=== PATIENT | female | born 1960 | race Caucasian/White ===

== ENCOUNTER → 2024-02-17 | Outpatient (CLI) | payer BC ==
[2024-02-17 10:46] LABS: HCT 43.8 % (34.0-46.0); HGB 13.8 gm/dL (11.4-16.0); MCHC 31.5 g/dL (31.0-37.0); MCV 95.3 fL (80.0-100.0); Mean Platelet Volume 9.3; Platelet Count 279 k/uL (150-450); RBC 4.59 m/uL (3.80-5.40); WBC 7.9 k/uL (3.8-10.6)
[2024-02-17 11:01] LABS: Partial Thromboplastin Time 30.2 sec (22.0-30.0)
[2024-02-17 15:44] LABS: ALT 19 U/L (8-44); AST 20 U/L (13-35); Albumin 4.5 g/dL (3.8-4.9); Albumin/Globulin Ratio 1.96 Ratio (1.60-3.17); Alkaline Phosphatase 98 U/L (41-126); BUN/Creat Ratio 13.43 Ratio (12.00-20.00); Blood Urea Nitrogen 9.4 mg/dL (9.0-27.0); Calcium 9.5 mg/dL (8.7-10.3); Carbon Dioxide 26.8 mmol/L (21.6-31.8); Chloride 102 mmol/L (96-109); Globulin 2.3 g/dL (1.6-3.3); Glucose 132 mg/dL (70-110); Potassium 4.4 mmol/L (3.5-5.5); Sodium 141 mmol/L (135-145); Total Bilirubin 0.3 mg/dL (0.3-1.2); Total Protein 6.8 g/dL (6.2-8.2)
[2024-02-19 15:04] LABS: INR 0.9 (<1.2); Prothrombin Time 9.8 sec (10.0-12.5)
== END | disposition home or self-care (01) ==
LOC: LABPAT 10:18
PROVIDERS: ATTEND Orthopaedic Surgery
DX: Z01.818 Encounter for other preprocedural examination (principal); I51.89 Other ill-defined heart diseases; M17.12 Unilateral primary osteoarthritis, left knee; Z22.322 Carrier or suspected carrier of Methicillin resistant Staphylococcus aureus
CPT/HCPCS: 80053; 85027; 85610; 85730; 87070; 93005

== ENCOUNTER 2024-03-08 09:04 | Observation (INO) | payer BC ==
[2024-03-03 13:13] VITALS: BMI 31.1
[~2024-03-08 09:04] MED LIST: HYDROmorphone 0.5 MG/0.5 ML SYRINGE IVP PRN; LIDOCAINE 1% (10MG/ML) FOR IV START INTRADERMA PRN; MAGNESIUM HYDROXIDE 2,400 MG/30 ML CUP PO PRN; MIDAZOLAM 2 MG/2 ML VIAL IV PRN; NA PHOS,M-B/NA PHOS,DI-BA 133 ML ENEMA RECTAL PRN; NALOXONE 0.4 MG/ML 1 ML VIAL IV PRN; TRANEXAMIC 1,000 MG/100ML-NACL 1,000 MG in SALINE 1 100ML.BAG IVPB PRN; bisacodyL 10 MG SUPP RECTAL PRN; fentaNYL (PF) 50 MCG/ML 2 ML AMP IVP PRN
[2024-03-08] MEDS: IV FLUID CONTINUATION 1,000 ML IV ONE (09:39)
[2024-03-08] MEDS: DEXAMETHASONE SOD PHOSPHATE 4 MG/ML 1 ML VIAL IV ONE (10:03)
[2024-03-08] MEDS: SCOPOLAMINE 1 MG/72 HR PATCH TRANSDERM STA (10:03)
[2024-03-08] MEDS: GABAPENTIN 300 MG CAP PO PRN (10:04)
[2024-03-08] MEDS: ACETAMINOPHEN TAB 500 MG TAB PO PRN (10:04)
[2024-03-08] MEDS: MELOXICAM 7.5 MG TAB PO PRN (10:04)
[2024-03-08] MEDS: ONDANSETRON 4 MG/2 ML VIAL IVP ONE (10:04)
[2024-03-08] MEDS: LACTATED RINGERS 1,000 ML IV SCH (10:05)
[2024-03-08] MEDS: FAMOTIDINE 20 MG/2 ML VIAL IV STA (10:06)
[2024-03-08] MEDS: MIDAZOLAM 2 MG/2 ML VIAL IVP ONE (10:11)
--- NOTE | 2024-03-08 10:40 | P.ANPRN ---
Procedure Note - Anesthesia - Nerve Block Performed Left Catherineck Single Time Out Performed: Yes Date of Procedure: 03/08/24 Procedure Start Time: 10:11 Procedure Stop Time: 10:16 Location of Patient: PreOp Indication: Acute Post-Operative Pain, Analgesia, Requested by Surgeon Sedation Type: Sedate with meaningful contact maintained Preparation: Sterile Prep Position: Right Lateral Catheter: None Needle Types: Pajunk Needle Gauge: 21 Ultrasound used to visualize needle placement: Yes Ultrasound used to observe medication spread: Yes Injectate: 0.5% Ropivacaine (see comment for volume) (Ropiv 20ml+Decadron 4mg) Blood Aspirated: No Pain Paresthesia on Injection Noted: No Resistance on Injection: Normal Image Stored and Saved: Yes Events: Uneventful and Well Tolerated
--- NOTE | 2024-03-08 10:41 | P.ANPRN ---
Procedure Note - Anesthesia - Nerve Block Performed Left Adductor Canal Infusion Time Out Performed: Yes Date of Procedure: 03/08/24 Procedure Start Time: : Procedure Stop Time: Location of Patient: PreOp Indication: Acute Post-Operative Pain, Analgesia, Requested by Surgeon Sedation Type: Sedate with meaningful contact maintained Preparation: Sterile Prep Position: Supine Catheter: Indwelling Needle Types: On-Q Ultrasound used to visualize needle placement: Yes Ultrasound used to observe medication spread: Yes Injectate: 0.5% Ropivacaine (see comment for volume) (Ropiv 20ml+[id number]) Blood Aspirated: No Pain Paresthesia on Injection Noted: No Resistance on Injection: Normal Image Stored and Saved: Yes Events: Uneventful and Well Tolerated
[2024-03-08] MEDS ORDERED: fentaNYL (PF) 50 MCG/ML 2 ML AMP ONE (12:30)
[2024-03-08] MEDS ORDERED: ROPIVACAINE 5 MG/ML 30 ML VIAL ONE (12:30)
[2024-03-08] MEDS ORDERED: PROPOFOL 10 MG/ML 20 ML VIAL IV ONE (12:30)
[2024-03-08] MEDS ORDERED: PHENYLEPHRINE 10 MG/ML VIAL ONE (12:30)
[2024-03-08] MEDS ORDERED: ePHEDrine 50 MG/ML 1 ML VIAL ONE (12:30)
[2024-03-08] MEDS ORDERED: DEXAMETHASONE SOD PHOSPHATE 4 MG/ML 1 ML VIAL ONE (12:30)
[2024-03-08] MEDS ORDERED: TRANEXAMIC 1,000 MG/100ML-NACL PREMIX BAG ONE (12:30)
[2024-03-08] MEDS ORDERED: MIDAZOLAM 2 MG/2 ML VIAL ONE (12:30)
[2024-03-08] MEDS: ceFAZolin 1,000 MG in SODIUM CHLORIDE 0.9% 1,000 ML IRRIGATION ONE (12:35)
--- NOTE | 2024-03-08 13:43 | P.OP ---
Date of Procedure: 03/08/24 Preoperative Diagnosis: Severe osteoarthritis left knee Postoperative Diagnosis: Severe osteoarthritis left knee Procedure(s) Performed: Left total knee arthroplasty Implants: [employer]hew Journey II CR Oxinium cruciate retaining femoral component size 6, left [employer] Journey nonporous tibial baseplate size 4, left [employer] Journey II, XLPE Deep Dished articular insert, size 11 mm, Size 3-4, left [employer] Journey Lluvia II resurfacing patellar component, oval, 29 mm All components were cemented using Palacos R bone cement The articulation is Oxinium on polyethylene Anesthesia: spinal Surgeon: Ranjeet Duckworth Model Maker [employer]arms #1: Chika Murillo Estimated Blood Loss (ml): 40 Pathology: none sent Condition: stable Disposition: PACU Indications for Procedure: The patient's knee is end-stage, and conservative management has failed. The operation of knee replacement has been discussed at length in the office, as well as potential risks and complications. These are inclusive of, but not limited to: Infection, bleeding, scarring, discomfort, stiffness, blood vessel and nerve damage, need for further surgery, failure to relieve symptoms, persistence, recurrence, or worsening of problems, loosening, dislocation, wear, blood clot, pulmonary embolism, , gait dysfunction, stiffness, and other risks as discussed in the office. Patient elects to proceed and the consent form has been signed. Operative Findings: The operative findings are consistent with severe osteoarthritis the left knee Description of Procedure: The patient was seen in the preoperative area, the consent was reviewed and the operative site was marked with a skin marker. The patient verified the procedure and the operative site. An adductor canal pain catheter and an iPACK block were placed by anesthesia in the preoperative area. The patient was then brought to the operating room and positioned on the operating room table in the supine position. Preoperative antibiotics and a gram of tranexamic acid were given intravenously. A spinal anesthetic was administered by the anesthesia department. Care was taken to make sure that all pressure points were adequately padded. A tourniquet was placed on the upper thigh and the lower extremity was prepped with ChloraPrep and draped in usual sterile fashion. A universal time-out was then performed which confirmed the patient's name, surgical site, ALLERGIES, and consent. The lower extremity was then exsanguinated and tourniquet was inflated to 250 mmHg. A standard anterior midline approach to the knee was performed. The skin and subcutaneous tissue were sharply dissected down to the patellar tendon. A medial parapatellar arthrotomy was then performed. The knee was then extended, the patellar was everted, and the knee was flexed. The infra-patellar fat pad was removed in order to enhance exposure. The anterior horns of both menisci were excised, and a release was performed to the posterior medial aspect of the knee. On gross visual inspection, there was complete loss of articular cartilage in the medial and patellofemoral joint spaces. There was also significant cartilage damage in the lateral compartment. There were multiple periarticular osteophytes globally about the knee which were then removed with a Ronguer. The femoral canal was then opened with the 9.5 mm intramedullary drill. The 8 mm intramedullary gely was then inserted into the femoral canal with the distal femoral cutting guide set for 5 of valgus. The distal femoral cutting block was then pinned in place. The intramedullary gely was then removed, and the distal femur was then cut. The cutting block was then removed and the cut was checked for symmetry. The resected bone was then measured to c onfirm the appropriate distal femoral resection. Next, the sizing guide was then placed and set for 3 external rotation based off of the epicondylar axis and Innis's line. Pins were then placed and the drill holes, and the femur was sized with the sizing stylus. The pins were then removed, and the sizing guide was then removed. The spikes of the appropriate size femoral block was then placed into the predrilled holes, and malleted into place. Two 45 mm pins were then placed into the fixation holes on the cutting block. An corry wing was then used to ensure there would be no notching with the anterior cut. The anterior condyles were cut without notching. The anterior chord cut was then performed, followed by the posterior cut, posterior chamfer cut, and the anterior chamfer cut. The collateral ligaments were protected during the entire process. The cutting block was then removed. Any remaining bone and osteophytes were removed from the femur with a Ronguer. Attention was then directed to the tibia. The remaining ACL was removed with a Ronguer, and the tibia was then gently subluxed forward with a large bent knee retractor. Any remaining menisci were excised. The posterior lateral corner was cauterized in order to coagulate the lateral geniculate artery. The extra medullary tibial cutting guide was then placed, set for the appropriate rotation, slope, and depth of resection. The proximal tibia cutting guide was then pinned in place. Proximal tibia was then cut and sized. A curved osteotome was then used to remove any posterior osteophytes from the distal femur. The femoral trial was placed. A narrow saw blade was then used to remove the anterior intracondylar femoral bone. The CR notch trial was then placed. The tibial trial was placed with the appropriate-sized insert. The knee was able to fully extend and flex to 130 and was stable throughout all range of motion. The knee was then extended and the patella was everted. Patella was then measured, and then using an osteotomy guide, the patella was cut at the appropriate level. The patellar component was sized. The patellar drill guide was placed and the patella was drilled. The patella trial was then placed. The knee was then taken through range of motion with the patella trial and the patella tracked normally using the no thumbs technique. The patella trial was then removed. The knee was then flexed and lug holes were drilled through the femoral trial and the femoral trial was then removed. The tibial was then re- exposed, and the tibial broach guide was then pinned in place after it was set for the appropriate rotation to allow for the most coverage without overhang. The tibia was then reamed and broached. The femoral canal was plugged with autologous bone. The cut surfaces of bone were then irrigated with pulsatile lavage. The knee was also irrigated with Irrisept solution. The components were then opened, the cement was mixed. Cement was placed on the backside of the femoral, tibial, and patellar components. Cement was then applied to the tibial surface and pressurized into the surface using finger pressurization technique. The tibial component was then applied and excess cement was removed after it was impacted securely noted to be flush with the cut surface. In similar fashion, the cement was applied to the cut femoral surface, pressurized and using finger pressurization the component was impacted in place. Excess cement was removed. The polyethylene spacer was then implanted and locked into position. Patellar component was then applied in a similar technique and the patellar clamp was used to hold patella in place while the cement hardened. The knee was held in full extension while the cement hardened. Once the cement had fully hardened, the knee was reinspected. Any other cement extrusion was removed the final range of motion testing showed range of motion from 0-130 with excellent stability, both medial and laterally and appropriate alignment of the leg. Patella tracked normally. After the cemented hardened, the tourniquet was released and hemostasis was obtained. A second gram of transexamic acid was given intravenously. The knee was again irrigated. The knee was again taken through range of motion and found to be stable throughout all range of motion of 0-130, and the patella tracked normally. The fascia was then closed with 0 Vicryl followed by #2 strata fix suture. The subcutaneous tissue was closed with 3-0 Vicryl and 3-0 strata fix. Exofin glue was used for the skin and placed with the knee in flexion. After the glue had dried, and Optafoam silver impregnated dressing was applied. A lightly compressive dressing was applied using web roll and Manohar wrap. Patient was then transferred to the stretcher and taken to recovery room in stable condition. Sponge and needle counts were correct. The assistant corporate controller ELLIOT Vernon was required due the complexity surgery and the need for a skilled professional nursing assistant. She assisted in positioning, draping, retraction, and closure of the wound.
[2024-03-08] MEDS: ROPIVACAINE 1,100 MG, SODIUM CHLORIDE 0.9% 500 ML 330 ML, EMPTY PAIN BALL 1 EACH MISCELLANE PRN (14:38)
[2024-03-08] MEDS: droPERidol 5 MG/2 ML VIAL IVP ONE (14:50)
[2024-03-08] MEDS: HYDROmorphone 0.5 MG/0.5 ML SYRINGE IVP PRN ×2 (14:51→23:16)
--- NOTE | 2024-03-08 15:03 | XR ---
EXAMINATION TYPE: XR knee limited LT DATE OF EXAM: 03/08/2024 COMPARISON: None HISTORY: Postknee replacement TECHNIQUE: 2 view left knee FINDINGS: Tibial and femoral components in place. Postsurgical soft tissue changes are present. No ac olena fracture or dislocation is evident. IMPRESSION: 1. No acute fracture post replacement
[2024-03-08] MEDS: SODIUM CHLORIDE 0.9% 1,000 ML IV SCH (17:01)
[2024-03-08] MEDS: HYDROcodone/APAP 7.5-325MG 1 EACH TAB PO PRN (18:32)
[2024-03-08] MEDS: ONDANSETRON 4 MG/2 ML VIAL IVP PRN (19:44)
[2024-03-08] MEDS: HYDROmorphone 1 MG/ML 1 ML SYRINGE IVP PRN (19:47)
[2024-03-08] MEDS: SENNOSIDES-DOCUSATE SODIUM 1 EACH TAB PO SCH (21:19)
[2024-03-08] MEDS: ASPIRIN 325 MG TAB PO SCH (21:19)
--- NOTE | 2024-03-09 06:13 | P.PN ---
Progress Note - Text Progress Note Date: 03/09/24 The patient is doing well status post total knee replacement. POD #1. Pain is w ell controlled by a combination of local anesthetic infusion through the adductor canal catheter and oral analgesics. There are no signs of infection around the catheter skin entry site. The local anesthetic infusion will be continued as per protocol.
[2024-03-09] MEDS ORDERED: ONDANSETRON 4 MG/2 ML VIAL IVP PRN (08:38)
[2024-03-09 08:41] LABS: Basophils # (A) 0.02 X 10*3/uL (0.00-0.10); Basophils % (A) 0.1 %; Eosinophils # (A) 0 X 10*3/uL (0.04-0.35); Eosinophils % (A) 0 %; HCT 34.9 % (37.2-46.3); HGB 11.4 g/dL (12.0-15.0); Lymphocytes # (A) 0.98 X 10*3/uL (0.90-5.00); Lymphocytes % (A) 7.2 %; MCH 31.1 pg (27.0-32.0); MCHC 32.7 g/dL (32.0-37.0); MCV 95.4 FL (80.0-97.0); Mean Platelet Volume 11.5 FL (9.5-12.2); Monocytes # (A) 0.64 X 10*3/uL (0.20-1.00); Monocytes % (A) 4.7 %; NRBC Per 100 WBC 0 X 10*3/uL (0.00-0.01); Neutrophils # (A) 11.86 X 10*3/uL (1.80-7.70); Neutrophils % (A) 87.6 %; Platelet Count 251 X 10*3/uL (140-440); RBC 3.66 X 10*6/uL (4.10-5.20); RDW 13.4 % (11.5-14.5); WBC 13.56 X 10*3/uL (4.50-10.00)
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
--- NOTE | 2024-03-09 09:41 | P.PN ---
Subjective Progress Note Date: 03/09/24 This is a 64-year-old female who is status post left total knee arthroplasty. This is postoperative day #1 and patient is seen and evaluated at bedside with Dr. Ranjeet Duckworth. Patient states that her pain is well-controlled, but she is quite nauseous this morning. Patient states that she is feeling somewhat better after eating breakfast. Patient states that she was able to work with physical therapy this morning with no issues. Objective - Vital Signs Vital signs: Vital Signs Temp 97.9 F 03/09/24 07:05 Pulse 77 03/09/24 07:05 Resp 16 03/09/24 07:05 BP 100/52 03/09/24 07:05 Pulse Ox 94 L 03/09/24 07:05 FiO2 Intake & Output 03/08/24 03/09/24 03/09/24 18:59 06:59 18:59 Intake Total 551 Output Total 40 Balance 511 Weight 93.5 kg Intake: IV 551 Output: Estimated Blood Loss 40 Other: Voiding Method Toilet # Voids 1 6 - Exam Vital signs are stable. Patient is in no acute distress and is alert and messi ented 3. Calf is soft and nontender to palpation. Dressing is clean, dry, and intact. Patient has full foot and ankle motion without pain or difficulty. Sensation intact. Neurovascular status and circulatory status are intact. - Labs CBC & Chem 7: 03/09/24 03:09 Labs: Abnormal Lab Results - Last 24 Hours (Table) 03/09/24 Range/Units 03:09 WBC 13.56 H (4.50-10.00) X 10*3/uL RBC 3.66 L (4.10-5.20) X 10*6/uL Hgb 11.4 L (12.0-15.0) g/dL Hct 34.9 L (37.2-46.3) % Immature Gran # 0.06 H (0.00-0.04) X 10*3/uL Neutrophils # 11.86 H (1.80-7.70) X 10*3/uL Eosinophils # 0 L (0.04-0.35) X 10*3/uL Assessment and Plan (1) Osteoarthritis of left knee Current Visit: Yes Status: Acute Code(s): M17.12 - UNILATERAL PRIMARY OSTEOARTHRITIS, LEFT KNEE SNOMED Code(s): 704914592232802 (2) Status post total left knee replacement Current Visit: Yes Status: Acute Code(s): Z96.652 - PRESENCE OF LEFT ARTIFICIAL KNEE JOINT SNOMED Code(s): 6192565129593 Plan: #1 Continue with routine postoperative care and pain control, leave dressing in place for 7 days. #2 Anticoagulation with aspirin. #3 Physical therapy today. #4 Appreciate input from internal medicine. #5 Anticipate discharge home with home care tomorrow.
[2024-03-09] MEDS: METOCLOPRAMIDE 5 MG/ML 2 ML VIAL IVP SCH (10:24)
[2024-03-09] MEDS: HYDROcodone/APAP 7.5-325MG 1 EACH TAB PO PRN (10:24)
[2024-03-10] MEDS ORDERED: KETOROLAC 15 MG/ML 1 ML VIAL IVP PRN (12:30)
--- NOTE | 2024-03-10 12:34 | P.PN ---
Subjective Progress Note Date: 03/10/24 This is a 64-year-old female who is status post left total knee arthroplasty. This is postoperative day #2 and patient is seen and evaluated at bedside today. Patient states that she continues to have issues with nausea, but has been able to work with physical therapy. Objective - Vital Signs Vital signs: Vital Signs Temp 99.2 F 03/10/24 06:58 Pulse 89 03/10/24 06:58 Resp 18 03/10/24 06:58 BP 104/62 03/10/24 06:58 Pulse Ox 91 L 03/10/24 07:52 FiO2 21 03/09/24 09:42 Intake & Output 03/09/24 03/10/24 03/10/24 18:59 06:59 18:59 Other: Voiding Method Toilet # Voids 2 3 - Exam Vital signs are stable. Patient is in no acute distress and is alert and oriented 3. Calf is soft and nontender to palpation. Dressing is clean, dry, and intact. Patient has full foot and ankle motion without pain or difficulty. Sensation intact. Neurovascular status and circulatory status are intact. - Labs CBC & Chem 7: 03/09/24 03:09 Assessment and Plan (1) Osteoarthritis of left knee Current Visit: Yes Status: Acute Code(s): M17.12 - UNILATERAL PRIMARY OSTEOARTHRITIS, LEFT KNEE SNOMED Code(s): 731904967428950 (2) Status post total left knee replacement Current Visit: Yes Status: Acute Code(s): Z96.652 - PRESENCE OF LEFT ARTIFICIAL KNEE JOINT SNOMED Code(s): 9416321259563 Plan: #1 Continue with routine postoperative care and pain control, leave dressing in place for 7 days. #2 Anticoagulation with aspirin. #3 Physical therapy today. #4 Appreciate input from internal medicine. #5 Anticipate discharge home with home care tomorrow.
[2024-03-10 20:08] VITALS: RESP 18
[2024-03-11 07:22] VITALS: BP 157/88; PULSE 78; TEMP 98.3
[2024-03-11 08:36] LABS: Basophils # (A) 0.06 X 10*3/uL (0.00-0.10); Basophils % (A) 0.6 %; Eosinophils # (A) 0.12 X 10*3/uL (0.04-0.35); Eosinophils % (A) 1.2 %; HCT 31.1 % (37.2-46.3); HGB 10.3 g/dL (12.0-15.0); Lymphocytes # (A) 1.49 X 10*3/uL (0.90-5.00); Lymphocytes % (A) 15.1 %; MCH 31.1 pg (27.0-32.0); MCHC 33.1 g/dL (32.0-37.0); Mean Platelet Volume 11.3 FL (9.5-12.2); Monocytes # (A) 0.71 X 10*3/uL (0.20-1.00); Monocytes % (A) 7.2 %; NRBC Per 100 WBC 0 X 10*3/uL (0.00-0.01); Neutrophils # (A) 7.45 X 10*3/uL (1.80-7.70); Neutrophils % (A) 75.3 %; Platelet Count 217 X 10*3/uL (140-440); RBC 3.31 X 10*6/uL (4.10-5.20); RDW 13.5 % (11.5-14.5); WBC 9.89 X 10*3/uL (4.50-10.00)
--- NOTE | 2024-03-11 09:03 | P.DS ---
Providers Date of admission: 03/08/24 09:05 Attending physician: Ranjeet Duckworth Consults: 03/08/24 08:39 Consult Physician Routine Consulting Provider: Dudley Dahl Consult Reason/Comments: medical management Do you want consulting provider notified?: Yes Primary care physician: Rabia Napoles - Discharge Diagnosis(es) (1) Osteoarthritis of left knee Current Visit: Yes Status: Acute (2) Status post total left knee replacement Current Visit: Yes Status: Acute Hospital Course: This is a -year-old female with history of degenerative arthritis to the left knee. They have failed outpatient conservative treatment and presents to discuss surgical options. After discussion and consideration the patient elects to proceed with total left knee arthroplasty. The patient is seen preoperatively by their primary care physician and cleared for surgery. The patient is taken to surgery on 03/08/2024 for total left knee arthroplasty. The procedure is performed without complication or sequelae. The patient is doing well postoperatively. Vital signs are stable on postop day #3. The patient is discharged to home in good condition. Please see med rec for accurate list of home medications. Patient Condition at Discharge: Good Plan - Discharge Summary Discharge Rx Participant: Yes New Discharge Prescriptions: New Aspirin 325 mg PO BID #60 tab HYDROcodone/APAP 7.5-325MG [[place] 7.5-325] 1 - 2 tab PO Q6H PRN #32 tab PRN Reason: Pain Ketorolac [Toradol] 10 mg PO Q6HR #12 tab Sennosides [Senokot] 2 tab PO DAILY PRN #60 tablet PRN Reason: Constipation Discharge Medication List Aspirin 325 mg PO BID #60 tab 03/08/24 [Rx] HYDROcodone/APAP 7.5-325MG [[place] 7.5-325] 1 - 2 tab PO Q6H PRN #32 tab 03/08/24 [Rx] Sennosides [Senokot] 2 tab PO DAILY PRN #60 tablet 03/08/24 [Rx] Ketorolac [Toradol] 10 mg PO Q6HR #12 tab 03/10/24 [Rx] Follow up Appointment(s)/Referral(s): Michelle Crouch, PAC [Family Provider] - 1 Week [facility] [NON[facility]STA[facility]] - 1-2 Days ([facility] will call you to schedule your in home physical therapy visits. ) Ranjeet Duckworth DO [Doctor of Osteopathic Medicine] - 03/23/24 2:30 pm (With Chika) Patient Instructions/Handouts: *Surgery [facility] - Scopalamine Patch Instructions Activity/Diet/Wound Care/Special Instructions: Weightbearing as tolerated with a walker. CPM 5-6h daily as tolerated. Leave dressing intact. Dressing may be removed by home care nurse or by patient in 7 days. Then change dressing twice daily until follow up. May shower with initial dressing intact and after removal. If dressing become saturated, please remove. Recommend use of compression stockings daily until follow up to help prevent swelling and blood clots. May remove at night before sleeping. Please take aspirin 325mg twice daily for 30 days to prevent blood clots. Please follow up with [facility] and call with any questions or concerns, . Discharge Disposition: HOME WITH HOME HEALTH SERVICES
== END 2024-03-11 13:04 | disposition home health service (06) ==
LOC: OR 09:04 → 4SSUR 09:05 → OR 09:05 → 4SSUR 14:04
PROVIDERS: ADMIT Orthopaedic Surgery; ATTEND Orthopaedic Surgery
DX: M17.12 Unilateral primary osteoarthritis, left knee (principal); J98.11 Atelectasis; J95.89 Other postprocedural complications and disorders of respiratory system, not elsewhere classified; G89.18 Other acute postprocedural pain; E66.9 Obesity, unspecified; Z87.828 Personal history of other (healed) physical injury and trauma; Z87.820 Personal history of traumatic brain injury; Z90.49 Acquired absence of other specified parts of digestive tract; Z90.710 Acquired absence of both cervix and uterus; Z79.82 Long term (current) use of aspirin; Z68.31 Body mass index [BMI] 31.0-31.9, adult
CPT/HCPCS: 27447; 94760 ×3; 97116; 97530; 97162; 64999; 64448; 85025 ×2; 73560; G0378 ×4; C1713; C1776; C1751; J2250; J1100; J2765 ×2; J0690 ×3; J2405 ×2; J3010; J3490; J1170 ×4; J2795; J2704; J1790; J2371